=== PATIENT | male | born 1985 | race Caucasian/White ===

== ENCOUNTER 2017-05-01 22:21 | Inpatient (IN) | payer MEDICAID, OTHER ==
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
[2017-05-02 01:47] VITALS: RESP 16
[2017-05-02 02:13] VITALS: BMI 28.1
[2017-05-02] MEDS ORDERED: MAG HYDROX/AL HYDROX/SIMETH 30 ML CUP PO PRN (02:27)
[2017-05-02] MEDS ORDERED: ACETAMINOPHEN TAB 325 MG TAB PO PRN (02:27)
[2017-05-02] MEDS ORDERED: LORazepam 1 MG TAB PO PRN (02:27)
[2017-05-02] MEDS ORDERED: MAGNESIUM HYDROXIDE 2,400 MG/10 ML CUP PO PRN (02:27)
[2017-05-02] MEDS ORDERED: ZIPRASIDONE 20 MG VIAL IM PRN (02:27)
--- NOTE | 2017-05-02 07:13 | P.MDCNMH ---
History of Present Illness H&P Date: 05/02/17 Chief Complaint: medical management 32-year-old male with history of depression, anxiety, and history of childhood epilepsy. Presented due to depressed emotions and overwhelming social stressors that led to flareup of his depression. He denies any suicidal or homicidal ideation. Currently denies any physical complaints. Review of Systems Constitutional: Patient denies fever, denies chills, denies night sweating, denies significant weight changes Eyes: Patient denies visual changes, denies eye pain ENT: Patient denies ear pain, denies rhinorrhea, denies sore throat Cardiovascular: Patient denies chest pain, denies exertional dyspnea, denies peripheral leg edema, denies orthopnea, denies paroxysmal nocturnal dyspnea Respiratory:Patient denies cough, denies wheezing, denies shortness of breath Gastrointestinal: Patient denies diarrhea, denies constipation, denies nausea , denies vomiting, denies abdominal pain Genitourinary: Patient denies dysuria, denies hematuria, denies changes in urinary habits, denies genital lesions Musculoskeletal: Patient denies muscle pain, denies joint pain Psychiatric: Patient reports depressed emotions, reports anxiety Endocrine: Patient denies heat intolerance, denies cold intolerance, denies excessive thirst, denies polyuria Neurological: Patient denies focal neurologic deficits, denies weakness, denies numbness, denies tingling Hem/Lymphatic: Patient denies bleeding tendency, denies bruising, denies swollen lymph glands Allergic/Immun: Patient denies recent allergic reactions Skin: Patient denies rashes, denies pruritis, denies ulcers Past Medical History Past Medical History: Seizure Disorder Additional Past Medical History / Comment(s): Last seizure at the age of [age] years old. History of Any Multi-Drug Resistant Organisms: None Reported Past Surgical History: Appendectomy Past Anesthesia/Blood Transfusion Reactions: No Reported Reaction Past Psychological History: Anxiety, Depression Smoking Status: Former smoker Past Alcohol Use History: Occasional Past Drug Use History: Cocaine, Marijuana Additional Drug Use History / Comment(s): Pt. admits to using medical marijuana to help with his anxiety. Pt. admits he tried cocaine several years ago. - Past Family History Father Family Medical History: Chest Pain / Angina Additional Family Medical History / Comment(s): Manic Depression, PTSD. Mother Family Medical History: No Reported History Medications and Allergies Home Medications and Allergies Comment(s): Patient reports only taking Celexa and medical marijuana this time Home Medications Medication Instructions Recorded Confirmed Type Citalopram Hydrobromide [CeleXA] 10 mg PO DAILY 05/01/17 05/01/17 History Allergies Allergy/AdvReac Type Severity Reaction Status Date / Time No Known Allergies Allergy Verified 05/02/17 03:24 Physical Exam Vitals: Vital Signs Temp Pulse Pulse Resp BP BP Pulse Ox 05/02/17 02:03 97.2 F L 85 16 124/79 99 05/02/17 01:45 97.3 F L 76 16 147/64 100 05/01/17 22:25 97 F L 93 18 127/75 99 Intake and Output 05/01/17 05/02/17 05/02/17 22:59 06:59 14:59 Other: Weight 74.843 kg 79.095 kg Constitutional: No acute distress, conversant, pleasant Eyes: Anicteric sclerae, moist conjunctiva, no lid-lag Pupils equal round reactive to light ENMT: NC/AT Oropharynx clear, no erythema, exudates Neck: Supple, FROM, no masses, or JVD No carotid bruits No thyromegaly Lungs: Clear to auscultation Clear to percussion Normal respiratory effort, no accessory muscle use Cardiovascular: Heart regular in rate and rhythm, No murmurs, gallops, or rubs No peripheral edema Abdominal: Soft Nontender, no guarding, rebound or rigidity Abdomen moving with respiration Normoactive bowel sounds No hepatomegaly, No splenomegaly No palpable mass No abdominal wall hernia noted Skin: Normal temperature, tone, texture, turgor No induration No subcutaneous nodules No rash, lesions No ulcers Extremities: No digital cyanosis No clubbing Pedal pulses intact and symmetrical Radial pulses intact and symmetrical No calf tenderness Psychiatric: Alert and oriented to person, place and time Depressed affect Poor judgment Neuro Muscles Strength 5/5 in all 4 extremities Sensation to light touch grossly present throughout No focal sensory deficits Lymphatics: no palpable cervical or supraclavicular , or inguinal lymph nodes Cranial Nerve Examination - Cranial Nerves Cranial Nerve II- Optic: Intact Cranial Nerve III- Oculomotor: Intact Cranial Nerve IV- Trochlear: Intact Cranial Nerve V- Trigeminal: Intact Cranial Nerve - Abducens: Intact Cranial Nerve VII- Facial: Intact Cranial Nerve VIII- Auditory: Intact Cranial Nerve IX- Glossopharyngeal: Intact Cranial Nerve X- Vagus: Intact Cranial Nerve XI- Accessory: Intact Cranial Nerve XII- Hypoglossal: Intact Assessment and Plan Assessment: 32-year-old male with history of depression anxiety presented due to flareup of his depression which she thinks is due to overwhelming social stressors. Currently he denies any medical concerns or any physical complaints. Plan: #Depression #Anxiety Management per psychiatry #DVT prophylaxis Patient is low risk and ambulatory Thank you for allowing us to participate in the care of this patient. We will follow peripherally. Do not hesitate to contact us with questions. Someone can be reached from the [facility] hospitalist group at all hours of the day at [phone].
[2017-05-02] MEDS: CITALOPRAM HYDROBROMIDE 10 MG TAB PO SCH (12:31)
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
[2017-05-03 06:56] VITALS: BP 122/66; PULSE 81; TEMP 98.3
[2017-05-03 08:12] LABS: Basophils % (A) 0 %; Eosinophils # (A) 0.2 k/uL (0-0.7); Eosinophils % (A) 2 %; HCT 47.4 % (39.0-53.0); Lymphocytes # (A) 1.7 k/uL (1.0-4.8); Lymphocytes % (A) 16 %; MCH 29.6 pg (25.0-35.0); MCHC 33.9 g/dL (31.0-37.0); MCV 87.5 fL (80.0-100.0); Mean Platelet Volume 7.8; Monocytes # (A) 0.5 k/uL (0-1.0); Monocytes % (A) 4 %; Neutrophils # (A) 7.9 k/uL (1.3-7.7); Neutrophils % (A) 76 %; Platelet Count 286 k/uL (150-450); RBC 5.41 m/uL (4.30-5.90); RDW 12.9 % (11.5-15.5); WBC 10.5 k/uL (3.8-10.6)
[2017-05-03 08:27] LABS: ALT 35 U/L (21-72); AST 22 U/L (17-59); Albumin 4.6 g/dL (3.5-5.0); Alkaline Phosphatase 94 U/L (38-126); Anion Gap 12 mmol/L; Blood Urea Nitrogen 12 mg/dL (9-20); Calcium 9.9 mg/dL (8.4-10.2); Carbon Dioxide 26 mmol/L (22-30); Chloride 104 mmol/L (98-107); Cholesterol 237 mg/dL (<200); Glucose 85 mg/dL (74-99); HDL Cholesterol 56 mg/dL (40-60); LDL Cholesterol,Calculated 162 mg/dL (0-99); Potassium 4.3 mmol/L (3.5-5.1); Sodium 142 mmol/L (137-145); Total Bilirubin 1.2 mg/dL (0.2-1.3); Total Protein 7.6 g/dL (6.3-8.2); Triglycerides 97 mg/dL (<150)
[2017-05-03] MEDS: CITALOPRAM HYDROBROMIDE 10 MG TAB PO SCH (08:34)
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
[2017-05-03 19:17] LABS: Hemoglobin A1C 5.5 % (4.0-6.0)
== END 2017-05-03 09:42 | disposition home or self-care (01) | DRG 881 ==
LOC: EC 22:21 → 3MHU 05-02 01:25
PROVIDERS: ADMIT Psychiatry & Neurology Psychiatry; ATTEND Psychiatry & Neurology Psychiatry
DX: F32.9 Major depressive disorder, single episode, unspecified (principal); R45.850 Homicidal ideations; R45.851 Suicidal ideations; Z62.810 Personal history of physical and sexual abuse in childhood; Z79.899 Other long term (current) drug therapy; Z81.8 Family history of other mental and behavioral disorders; Z87.891 Personal history of nicotine dependence; Z90.49 Acquired absence of other specified parts of digestive tract; F41.9 Anxiety disorder, unspecified
CPT/HCPCS: 80053; 80061; 82075; 83036; 84443; 85025; 99285

== ENCOUNTER 2019-08-30 09:46 | Inpatient (IN) | payer MEDICAID, OTHER ==
--- NOTE | 2019-08-30 10:17 | ED ---
Psych HPI - General Source: patient, RN notes reviewed Mode of arrival: ambulatory Limitations: no limitations <Davis Nguyễn - Last Filed: 08/30/19 13:26> <Jerry Winkler - Last Filed: 08/30/19 13:29> - General Chief Complaint: Psychiatric Symptoms Stated Complaint: mental health Time Seen by Provider: 08/30/19 09:56 - History of Present Illness Initial Comments: 34-year-old male presents emergency Department chief complaint of psychiatric issues. Patient states she's been hearing voices. Patient states she's felt suicidal states he was an overdose last night but stable to find the side. Patient has had issues like this in the past. Patient denies any current psychiatric medications though he was. He on something he does admit to occasional call use and occasional drug use. Patient denies any physical complaints. (Davis Nguyễn) - Related Data Previous Rx's Medication Instructions Recorded Citalopram Hydrobromide [CeleXA] 20 mg PO DAILY #14 tab 05/03/17 Allergies Allergy/AdvReac Type Severity Reaction Status Date / Time bee venom protein (honey bee) Allergy Anaphylaxis Verified 08/30/19 09:55 Review of Systems ROS Other: All systems not noted in ROS Statement are negative. <Davis Nguyễn - Last Filed: 08/30/19 13:26> ROS Other: All systems not noted in ROS Statement are negative. <Jerry Winkler - Last Filed: 08/30/19 13:29> ROS Statement: Those systems with pertinent positive or pertinent negative responses have been documented in the HPI. Past Medical History Past Medical History: Seizure Disorder Additional Past Medical History / Comment(s): Last seizure at the age of [age] years old. History of Any Multi-Drug Resistant Organisms: None Reported Past Surgical History: Appendectomy Past Anesthesia/Blood Transfusion Reactions: No Reported Reaction Past Psychological History: Anxiety, Depression Smoking Status: Current every day smoker Past Alcohol Use History: Occasional Past Drug Use History: Cocaine, Marijuana - Past Family History Father Family Medical History: Chest Pain / Angina Additional Family Medical History / Comment(s): Manic Depression, PTSD. Mother Family Medical History: No Reported History <Davis Nguyễn - Last Filed: 08/30/19 13:26> General Exam Limitations: no limitations General appearance: alert, in no apparent distress Head exam: Present: atraumatic, normocephalic, normal inspection Eye exam: Present: normal appearance, PERRL, EOMI. Absent: scleral icterus, conjunctival injection, periorbital swelling ENT exam: Present: normal exam, normal oropharynx, mucous membranes moist, TM's normal bilaterally Neck exam: Present: normal inspection, full ROM. Absent: tenderness, meningismus, lymphadenopathy Respiratory exam: Present: normal lung sounds bilaterally. Absent: respiratory distress, wheezes, rales, rhonchi, stridor Cardiovascular Exam: Present: regular rate, normal rhythm, normal heart sounds. Absent: systolic murmur, diastolic murmur, rubs, gallop, clicks Neurological exam: Present: alert, oriented X3, CN II-XII intact, reflexes normal. Absent: motor sensory deficit Psychiatric exam: Present: depressed, flat affect Skin exam: Present: warm, dry, intact, normal color. Absent: rash <Davis Nguyễn - Last Filed: 08/30/19 13:26> Course <Jerry Winkler - Last Filed: 08/30/19 13:29> Vital Signs 08/30/19 08/30/19 08/30/19 09:52 09:55 10:55 Temperature 98.9 F Pulse Rate 117 H Respiratory 16 18 18 Rate Blood Pressure 126/64 O2 Sat by Pulse 97 Oximetry 08/30/19 11:55 Temperature Pulse Rate Respiratory 18 Rate Blood Pressure O2 Sat by Pulse Oximetry - Reevaluation(s) Reevaluation #1: 08/30/19 13:29 PA supervision: I proceeded evaluate this case patient does present with complaints of feeling depressed and suicidal hearing voices. He does have a history of methamphetamine use. Patient was evaluated by psychiatric service and will be admitted for inpatient treatment and care. (Jerry Winkler) Medical Decision Making <Davis Nguyễn - Last Filed: 08/30/19 13:26> - Medical Decision Making Patient evaluated as discussed with psychiatrist recommends inpatient treatment for suicidal ideation. (Davis Nguyễn) - Lab Data Lab Results 08/30/19 Range/Units 10:15 Urine Opiates Screen Not Detected (NotDetected) Ur Oxycodone Screen Not Detected (NotDetected) Urine Methadone Screen Not Detected (NotDetected) Ur Propoxyphene Screen Not Detected (NotDetected) Ur Barbiturates Screen Not Detected (NotDetected) U Tricyclic Antidepress Not Detected (NotDetected) Ur Phencyclidine Scrn Not Detected (NotDetected) Ur Amphetamines Screen Detected H (NotDetected) U Methamphetamines Scrn Detected H (NotDetected) U Benzodiazepines Scrn Not Detected (NotDetected) Urine Cocaine Screen Not Detected (NotDetected) U Marijuana (THC) Screen Detected H (NotDetected) Disposition <Davis Nguyễn - Last Filed: 08/30/19 13:26> <Jerry Winkler - Last Filed: 08/30/19 13:29> Clinical Impression: Depression, Suicidal ideation, Methamphetamine use Disposition: TRANSFER TO PSYCH HOSP/UNIT Referrals: None,Stated [Primary Care Provider] - 1-2 days
[2019-08-30 10:37] LABS: Amphetamine Screen,Urine Detected (NotDetected); Cocaine Screen,Urine Not Detected (NotDetected); Opiate Screen,Urine Not Detected (NotDetected); Phencyclidine Screen,Urine Not Detected (NotDetected); Urn Cannabinoid Scrn Detected (NotDetected)
[2019-08-30 10:38] LABS: Barbiturate Screen,Urine Not Detected (NotDetected); Benzodiazepines Screen,Urine Not Detected (NotDetected); Methadone Screen, Urine Not Detected (NotDetected); Oxycodone Screen, Urine Not Detected (NotDetected); Tricyclic Antidepressant,Urine Not Detected (NotDetected)
[2019-08-30 16:36] LABS: HCT 44.8 % (39.0-53.0); HGB 14.3 gm/dL (13.0-17.5); MCH 29.3 pg (25.0-35.0); MCV 91.7 fL (80.0-100.0); Mean Platelet Volume 9.1; Platelet Count 229 k/uL (150-450); RBC 4.89 m/uL (4.30-5.90); RDW 14.6 % (11.5-15.5); WBC 6.2 k/uL (3.8-10.6)
[2019-08-30 16:44] LABS: ALT 10 U/L (4-49); AST 20 U/L (17-59); African American GFR (CKD) >90 (>60 ml/min/1.73 sqM); Albumin 3.8 g/dL (3.5-5.0); Alkaline Phosphatase 97 U/L (38-126); Anion Gap 4 mmol/L; Blood Urea Nitrogen 11 mg/dL (9-20); Calcium 8.9 mg/dL (8.4-10.2); Carbon Dioxide 25 mmol/L (22-30); Chloride 107 mmol/L (98-107); Glucose 74 mg/dL (74-99); Non-African American GFR(CKD) >90 (>60 ml/min/1.73 sqM); Potassium 4.3 mmol/L (3.5-5.1); Sodium 136 mmol/L (137-145); Total Bilirubin 0.7 mg/dL (0.2-1.3); Total Protein 6.2 g/dL (6.3-8.2)
[2019-08-30 16:47] LABS: Appearance,Urine Cloudy (Clear); Bilirubin,Urine Negative (Negative); Blood,Urine Negative (Negative); Calcium Oxalate Crystals,Urine Many /hpf; Color,Urine Yellow; Glucose,Urine (UA) Negative (Negative); Hyaline Casts,Urine 1 /lpf (0-2); Ketones,Urine Negative (Negative); Leukocyte Esterase,Urine Moderate (Negative); Mucus,Urine Few /hpf; Nitrite,Urine Negative (Negative); Protein,Urine 1+ (Negative); RBC,Urine 1 /hpf (0-5); Specific Gravity,Urine 1.025 (1.001-1.035); Squamous Epithelial Cell,Urine <1 /hpf (0-4); WBC,Urine 60 /hpf (0-5)
[2019-08-31] MEDS ORDERED: MAGNESIUM HYDROXIDE 2,400 MG/10 ML CUP PO PRN (15:38)
[2019-08-31] MEDS ORDERED: ZIPRASIDONE 20 MG VIAL IM PRN (15:38)
[2019-08-31] MEDS ORDERED: ACETAMINOPHEN TAB 325 MG TAB PO PRN (15:38)
[2019-08-31] MEDS ORDERED: MAG HYDROX/AL HYDROX/SIMETH 30 ML CUP PO PRN (15:38)
[2019-08-31] MEDS ORDERED: LORazepam 2 MG/ML INJ IM PRN (15:44)
--- NOTE | 2019-08-31 16:31 | P.CONS ---
History of Present Illness - Reason for Consult Consult date: 08/31/19 - Chief Complaint Hospital hallucination - History of Present Illness This is a 34-year-old male with past medical history of depression and anxiety who presented to the hospital with audible hallucination. He reported hearing voices encouraging him to harm his brother. He did not have any particular plan. He was seen in the ER and was currently admitted to the psych unit for further management. I was asked to see him for medical management. Patient's report using marijuana and methamphetamine. He denies any other substance use. He also smokes c approximately half a pack of cigarette per day. Review of Systems Review of system: 14 points review of systems were obtained and were negative except to what were mentioned in the HPI. Past Medical History Past Medical History: Seizure Disorder Additional Past Medical History / Comment(s): Last seizure at the age of [age] years old. History of Any Multi-Drug Resistant Organisms: None Reported Past Surgical History: Appendectomy Past Anesthesia/Blood Transfusion Reactions: No Reported Reaction Smoking Status: Current every day smoker - Past Family History Father Family Medical History: Chest Pain / Angina Additional Family Medical History / Comment(s): Manic Depression, PTSD. Mother Family Medical History: No Reported History Medications and Allergies Home Medications Medication Instructions Recorded Confirmed Type No Known Home Medications 08/30/19 08/31/19 History Allergies Allergy/AdvReac Type Severity Reaction Status Date / Time bee venom protein (honey bee) Allergy Severe Anaphylaxis Verified 08/31/19 16:16 Physical Exam Vitals: Vital Signs Temp Pulse Pulse Resp BP BP Pulse Ox 08/31/19 15:43 97.2 F L 88 16 107/64 99 08/31/19 15:24 98 F 70 18 114/68 98 08/31/19 06:19 77 18 111/59 98 08/30/19 22:00 78 16 99 08/30/19 20:00 97.9 F 86 16 122/69 99 08/30/19 18:15 98.0 F 70 16 121/62 99 Intake and Output 08/31/19 08/31/19 08/31/19 06:59 14:59 22:59 Other: Weight 68 kg General: The patient is awake and alert, in no distress Eye: there is normal conjunctiva bilaterally. Neck: The neck is supple, there is no JVD. Cardiovascular: Normal S1-S2, no S3-S4, no murmurs. Respiratory: Lungs clear to auscultation bilaterally Gastrointestinal: Abdomen is soft, nontender Musculoskeletal: There is no pedal edema. Neurological:. Speech is normal. Skin: Skin is warm and dry Results CBC & Chem 7: 08/30/19 16:20 08/30/19 16:20 Labs: Abnormal Lab Results - Last 24 Hours (Table) 08/30/19 08/30/19 Range/Units 10:15 16:20 Sodium 136 L (137-145) mmol/L Creatinine 0.65 L (0.66-1.25) mg/dL Total Protein 6.2 L (6.3-8.2) g/dL Urine Protein 1+ H (Negative) Ur Leukocyte Esterase Moderate H (Negative) Urine WBC 60 H (0-5) /hpf Calcium Oxalate Crystal Many H (None) /hpf Urine Mucus Few H (None) /hpf Assessment and Plan Assessment: 1. Acute psychosis with homicidal thoughts 2. History of depression and anxiety 3. Tobacco abuse, counseled to quit. Patient declined nicotine patch at this time. Management per psychiatry. We will follow-up on as-needed basis. Thank you for the consultation.
[2019-09-01] MEDS: LORazepam 1 MG TAB PO PRN (02:35)
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
[2019-09-01 12:40] LABS: Hemoglobin A1C 5.3 % (4.0-6.0)
[2019-09-01] MEDS: ARIPiprazole 5 MG TAB PO SCH (14:06)
[2019-09-02] MEDS: ARIPiprazole 5 MG TAB PO SCH (08:57)
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
[2019-09-02] MEDS: MELATONIN 5 MG TABLET PO SCH (21:10)
[2019-09-03] MEDS: ARIPiprazole 10 MG TAB PO SCH (07:50)
--- NOTE | 2019-09-03 10:22 | P.PN ---
Subjective Progress Note Date: 09/03/19 Principal diagnosis: Diagnosis: Psychosis NOS Subjective: The patient says that he is sleeping well and working on plans for after discharge should continue to do well he says the most important thing he needs to get a job as sitting around doing nothing adds to his problems. He says the voices of almost gone away and he has no strong paranoid feelings and is committed to ignoring any that pop up after discharge. He says that he is fine with discharge whenever the team think that is appropriate. I think the most important thing is he needs to leave stimulants alone. He may need to get into a substance program. Objective: Vital signs temperature 97.5 heart rate 94 respirations 16 blood pressure 110/61 Labs nothing new on the it was noted that he had amphetamines and methamphetamines and marijuana in his blood. He also had evidence of urinary infection with increased white count of 60 and moderate leukocyte esterase. He denies any burning or pain or frequency and I think that good oral liquid intake is probably helped him clear the problem however I'm going to order another urinalysis this morning clean-catch midstream and see if it isn't any better w e'll refer him to his family doctor as he is probably going to be discharged tomorrow. Patient self-care is good speech is appropriate is cooperative staff felt that sometimes his thought processes are racing a bit denies suicidality or homicidality denies any new hallucinations or delusions and says that they are fading he comes to group and participates. He slept well last night Activity therapy group he stayed for the timekeeper initiates contact with peers is attentive talks with staff psychomotor activity is normal good focus did not need much assistance. Anxiety management group left somewhat early but was compliant attentive did not need assistance Social work group patient seemed just a little pressured and intrusive insight was minimal he came late but then stayed for almost 40 minutes Mental status exam. I saw him one on one in the office he was cooperative came readily good eye contact reasonable self-care oriented to person place time and circumstance no evidence of responding to voices no defensiveness no fearfulness no anger. Assessment plan patient is improving tolerating the increase in Abilify. However I am a little concerned about his likelihood of relapse if he uses any stimulants want to make sure he is committed to and has follow-up support in regards to that. Objective - Vital Signs Vital signs: Vital Signs Temp 97.5 F L 09/03/19 05:53 Pulse 94 09/03/19 05:53 Resp 16 09/03/19 05:53 BP 110/61 09/03/19 05:53 Pulse Ox 99 09/02/19 06:44 - Labs CBC & Chem 7: 08/30/19 16:20 08/30/19 16:20
[2019-09-03 20:32] LABS: Appearance,Urine Clear (Clear); Bilirubin,Urine Negative (Negative); Blood,Urine Negative (Negative); Color,Urine Light Yellow; Glucose,Urine (UA) Negative (Negative); Ketones,Urine Negative (Negative); Leukocyte Esterase,Urine Negative (Negative); Nitrite,Urine Negative (Negative); Protein,Urine Negative (Negative); Specific Gravity,Urine 1.007 (1.001-1.035); Urobilinogen,Urine <2.0 mg/dL (<2.0)
[2019-09-03] MEDS: MELATONIN 5 MG TABLET PO SCH (21:07)
[2019-09-04] MEDS: LORazepam 1 MG TAB PO PRN (00:05)
[2019-09-04 00:19] VITALS: BP 144/68; PULSE 89; RESP 14; TEMP 97.9
[2019-09-04] MEDS: ARIPiprazole 10 MG TAB PO SCH (07:59)
--- NOTE | 2019-09-04 10:58 | P.DS ---
Providers Date of admission: 08/31/19 14:13 Expected date of discharge: 09/04/19 Attending physician: Gill Orellana MD Consults: 08/31/19 15:38 Consult Physician Routine Consulting Provider: Briseyda Karimi Consult Reason/Comments: H&P and medical Do you want consulting provider notified?: Yes Primary care physician: Stated None Plan - Discharge Summary Discharge Rx Participant: No New Discharge Prescriptions: No Action No Known Home Medications Discharge Medication List No Known Home Medications 08/30/19 [History] Follow up Appointment(s)/Referral(s): [facility] [Outside] - 09/09/19 1:00 pm (Appointment 09/09/19 at 1 pm with Marisabel at the [facility].) None,Stated [Primary Care Provider] - 1-2 days Activity/Diet/Wound Care/Special Instructions: Activity and diet as tolerated. Avoid the use of street drugs and alcohol. Take all medications as prescribed. When you are in need of refills on your medications please contact your medical provider and/or outpatient psychiatrist to have this done. Please go to scheduled outpatient appointment for aftercare treatment. If symptoms return or become worse, call the crisis line at and/or go to the nearest emergency room for evaluation
--- NOTE | 2019-09-04 11:08 | P.DS ---
Providers Date of admission: 08/31/19 14:13 Expected date of discharge: 09/04/19 Attending physician: Gill Orellana MD Consults: 08/31/19 15:38 Consult Physician Routine Consulting Provider: Briseyda Karimi Consult Reason/Comments: H&P and medical Do you want consulting provider notified?: Yes Primary care physician: Stated None - Discharge Diagnosis(es) (1) Methamphetamine use Current Visit: Yes Status: Acute (2) Unspecified psychosis Current Visit: Yes Status: Acute Hospital Course: The patient was admitted to the psychiatric unit on due to significant paranoid psychotic symptoms. It was felt that he was a danger to himself and to others as he might defend himself in dangerous ways. He has been quite cooperative in the hospital and I put him on an antipsychotic medicine Abilify which she has tolerated well also he has not been using any of the stimulants which probably contributed to the paranoia. He has gone to groups and classes only for the last day or so but when he goes he is compliant attentive interacts well with peers and staff verbal able to focus good insight. He verbalizes understanding that he needs to stay off of his stimulants continue with the current medicines at least for the near future Mental status exam the patient is alert oriented to person place time and circumstance excellent self care good sense of humor quick response times without being pressured gait and station are normal self-care is good he is cooperative he was not pressured about I have to get out right now but was feeling comfortable with the discharge. He voiced feeling that the medications in his stay here has been helpful. Postdischarge plan the patient has his own place to go to U be getting help from the [facility] in [facility] He is given a month's supply with one refill of Abilify 10 mg a day I reviewed the side effects benefits usual course he is not having any akathisia or EPS I do not think you have to take it half-way if he stays off the stimulants but did explain to him about possibility of tardive dyskinesia. Assessment: The patient's voices and paranoia have cleared nicely he seems to be committed to follow-up plans that are practical he voices having benefit from his stay here and I think his prognosis is significantly improved Health Concerns: The patient seems to be stable medically he did have some signs of urinary tract infection upon admission but when these were repeated it seems to have cleared prior just because he's taking plenty of fluids Pertinent Studies: He had basic labs drawn on 719 other than elevated white count leukocyte Estrace and his urine and his toxicology being positive for amphetamines and methamphetamines and marijuana and he was not positive for Antunez virus. No other tests were run Procedures: None Plan - Discharge Summary Discharge Rx Participant: No New Discharge Prescriptions: No Action No Known Home Medications Discharge Medication List No Known Home Medications 08/30/19 [History] Follow up Appointment(s)/Referral(s): [facility] [Outside] - 09/09/19 1:00 pm (Appointment 09/09/19 at 1 pm with Marisabel at the [place] office.) None,Stated [Primary Care Provider] - 1-2 days Activity/Diet/Wound Care/Special Instructions: Activity and diet as tolerated. Avoid the use of street drugs and alcohol. Take all medications as prescribed. When you are in need of refills on your medications please contact your medical provider and/or outpatient psychiatrist to have this done. Please go to scheduled outpatient appointment for aftercare treatment. If symptoms return or become worse, call the crisis line at and/or go to the nearest emergency room for evaluation
== END 2019-09-04 14:45 | disposition home or self-care (01) | DRG 885 ==
LOC: EC 09:46 → 3MHU 08-31 14:13
PROVIDERS: ADMIT Psychiatry & Neurology Psychiatry; ATTEND Psychiatry & Neurology Psychiatry
DX: F23 Brief psychotic disorder (principal); R45.851 Suicidal ideations; N39.0 Urinary tract infection, site not specified; G40.909 Epilepsy, unspecified, not intractable, without status epilepticus; R45.850 Homicidal ideations; Z11.59 Encounter for screening for other viral diseases; F32.9 Major depressive disorder, single episode, unspecified; F41.9 Anxiety disorder, unspecified; F15.90 Other stimulant use, unspecified, uncomplicated; F12.90 Cannabis use, unspecified, uncomplicated; F17.210 Nicotine dependence, cigarettes, uncomplicated; Z71.6 Tobacco abuse counseling; Z79.899 Other long term (current) drug therapy; Z90.49 Acquired absence of other specified parts of digestive tract; Z91.030 Bee allergy status; Z81.8 Family history of other mental and behavioral disorders
CPT/HCPCS: 36415; 80053; 80061; 80306; 81001; 81003; 82075; 83036; 84443; 85027; 99285